=== PATIENT | female | born 1965 | race Caucasian/White ===

== ENCOUNTER 2017-06-22 12:47 | Emergency (ER) | payer OTHER ==
[~2017-06-22] VITALS: Ht 157.5 cm; Wt 92.9 kg
[~2017-06-22 12:47] MED LIST: ACET-1311 PO; NAPR1TAB9 PO; OXYC-57 PO
[2017-06-22 12:57] VITALS: TEMP 36.8; Ht 157.5 cm; Wt 92.9 kg
[2017-06-22] MEDS ORDERED: DiphenhydrAMINE HCL 50 MG/ML VIAL IV STA (13:07)
[2017-06-22] MEDS ORDERED: METHYLPREDNISOLONE 125 MG VIAL IV STA (13:07)
[2017-06-22] MEDS ORDERED: FAMOTIDINE 20MG/5ML IV PUSH IV STA (13:07)
[2017-06-22] MEDS ORDERED: CEFTRIAXONE SOD INJ 1 GM ADDVIAL IV STA (13:07)
--- NOTE | 2017-06-22 13:11 | EMERGENCY ROOM VISIT NOTE ---
History Report prepared by Hans: Nemesio Torres Under the Supervision of: Dr. Layton Chowdhury M.D. First contact with patient: 13:03 Chief Complaint: ALLERGIC REACTION Stated Complaint: ALLERGIC REACTION TO MEDICATION Nursing Triage Summary: pt reports she just started Bactrim and Phenazopyridine, took first and only dose at 1100. Pt reports 30 min after started sneezing, itchiness to ears and throat, chest irritated and red, bilateral palms red and itching. Pt on for UTI History of Present Illness The patient is a 51 year old female who presents to the Emergency Room with complaints of constant itchiness in her throat and over her palms that began about 1 hour prior to arrival after taking her first dosage of Bactrim and Pyridium. The patient was recently prescribed Bactrim and Pyridium for a urinary tract infection. She has taken Bactrim before, but this was her first time taking Pyridium. 1 hour after taking the medication her throat and hands began to itch. She also has itching diffusely over her torso, but notes that her hands and throat are worse. She has not taken any Benadryl. Source of History: patient Onset: 1 hour [employer] Position: throat, hand (bilateral) Quality: other (itching) Timing: constant Review of Systems See HPI for pertinent positives & negatives. A total of 10 systems reviewed and were otherwise negative. Past Medical & Surgical UTI (urinary tract infection) Family History Cancer Diabetes mellitus Gallbladder disease Heart disease Hypertension Kidney disease Kidney stones Lung disease Seizures Social History Smoking Status: Never Smoker Drug Use: none Marital Status: Housing Status: lives with family Occupation Status: employed Current/Historical Medications Scheduled Naproxen (Aleve), 220 MG PO UD Nitrofurantoin Monohyd Macrocr (Macrobid), 100 MG PO BID Prednisone (Prednisone Tab), 0 PO DAILY Ranitidine Hcl (Zantac), 150 MG PO BID Miscellaneous Medications Acetaminophen (Tylenol), 650 MG PO Allergies Coded Allergies: Phenazopyridine (Unverified Allergy, Severe, ITCHING/COUGHING/RASH, ) Sulfamethoxazole w/Trimethoprim (Unverified Allergy, Severe, RASH/ITCHING/ COUGHING, 06/22/17) Penicillins (Unverified Allergy, Intermediate, STOMACH SENSIVITY, 06/22/17) Adhesives (Verified Allergy, Unknown, 06/22/17) Physical Exam Vital Signs Date Time Temp Pulse Resp B/P (MAP) Pulse Ox O2 Delivery O2 Flow Rate FiO2 06/22/17 14:52 82 18 159/97 98 06/22/17 14:01 77 06/22/17 13:01 100 Room Air 06/22/17 12:57 36.8 96 16 173/109 100 Room Air Physical Exam GENERAL: Patient is a healthy-appearing well-nourished female. HEAD: Normocephalic atraumatic EYES: Ocular movements intact pupils equal and react to light OROPHARYNX mucous membranes are moist no exudates present no erythema or edema present NECK: Supple no nuchal rigidity CHEST: Good equal expansion. There is no wheezing or stridor on exam. LUNGS: Clear and equal to auscultation CARDIAC: Normal S1 and S2 ABDOMEN: Soft nontender no guarding BACK: No CVA tenderness EXTREMITIES: No pain upon palpation normal muscle strength in all groups no clubbing cyanosis or edema NEURO: Patient is following commands and answering questions appropriately. Alert and oriented x3 Cranial Nerves 2-12 grossly intact SKIN: Urticarial rash to the palms, torso and back. Medical Decision & Procedures Medications Administered Medications (Trade) Dose Ordered Sig/Nazanin Route Start Time Stop Time Status Last Admin Dose Admin Methylprednisolone Sodium Succinate (Solu-Medrol IV) 125 mg NOW STAT IV 06/22/17 13:07 06/22/17 13:09 DC 06/22/17 13:47 125 MG Diphenhydramine HCl (Benadryl Inj) 50 mg NOW STAT IV 06/22/17 13:07 06/22/17 13:09 DC 06/22/17 13:46 50 MG Famotidine (Pepcid 20mg Iv Push) 20 mg ONE STAT IV 06/22/17 13:07 06/22/17 13:09 DC 06/22/17 13:46 20 MG Ceftriaxone Sodium (Rocephin Inj) 1 gm NOW STAT IV 06/22/17 13:07 06/22/17 13:09 DC 06/22/17 13:47 1 GM ED Course 1304: Past medical records reviewed. The patient was evaluated in room A3. A complete history and physical examination was performed. 1307: Ordered Rocephin 1 gm IV, Famotidine 20 mg IV, Benadryl 50 mg IV, Solu- Medrol 125 mg IV. 1412: Upon reexamination the patient is resting in bed. I discussed results and treatment plan with the patient. She verbalizes agreement and understanding. The patient is ready for discharge. Medical Decision Differential diagnosis: Etiologies such as allergic reaction, anaphylaxis, urticaria, Hernández-Darnell syndrome, toxic epidermal necrolysis, erythema multiforme, cellulitis, as well as others were entertained. This is a 51-year-old female who presents emergency department complaining of rash to her hands and body approximately one half hour after taking her Bactrim and Pyridium. An IV was established, the patient was given Solu-Medrol, Benadryl, Zantac. She was also started on IV Rocephin and given Macrobid for her UTI. Repeat examination revealed improvement patient's symptoms. I do feel the patient can be safely discharged home. She'll be placed on Macrobid as well as a prednisone taper and Zantac. Patient was in agreement with the treatment plan. Impression Primary Impression: Allergic reaction Scribe Attestation The scribe's documentation has been prepared under my direction and personally reviewed by me in its entirety. I confirm that the note above accurately reflects all work, treatment, procedures, and medical decision making performed by me. Departure Information Dispostion Home / Self-Care Prescriptions Ranitidine Hcl (ZANTAC) 150 Mg Tab 150 MG PO BID for 7 Days, #14 TAB Prov: Layton Chowdhury MD 06/22/17 Prednisone (Prednisone Tab) 20 Mg Tab 0 PO DAILY, #7 TAB 2 TABS DAILY FOR 2 DAYS, THEN 1 TAB DAILY FOR 2 DAYS, THEN 1/2 TAB DAILY FOR 2 DAYS. Prov: Layton Chowdhury MD 06/22/17 Nitrofurantoin Monohyd Macrocr (Macrobid) 100 Mg Cap 100 MG PO BID for 7 Days, #14 CAP Prov: Layton Chowdhury MD 06/22/17 Referrals No Doctor, Assigned (PCP) Forms HOME CARE DOCUMENTATION FORM, IMPORTANT VISIT INFORMATION Patient Instructions My [facility] [address] Additional Instructions STOP pyridum and Bactrim You have been examined and treated today on an emergency basis only. This is not a substitute for, or an effort to provide, complete comprehensive medical care. It is impossible to recognize and treat all injuries or illnesses in a single emergency department visit. It is therefore important that you follow up closely with your PCP. Call as soon as possible for an appointment. Thank you for your time and consideration. I look forward to speaking with you again soon. Please don't hesitate to call us if you have any questions. Problem Qualifiers Primary Impression: Allergic reaction Encounter type: initial encounter Qualified Codes: T78.40XA - Allergy, unspecified, initial encounter
[2017-06-22] MEDS ORDERED: NITR-5 PO (14:10)
[2017-06-22] MEDS ORDERED: PRED20TA2 PO (14:11)
[2017-06-22] MEDS ORDERED: RANI150T3 PO (14:11)
[2017-06-22 14:52] VITALS: BP 159/97; PULSE 82; O2SAT 98
== END 2017-06-22 14:54 | disposition home or self-care (01) ==
LOC: C.EDB 12:50 → C.EDA 14:54
DX: T78.40XA Allergy, unspecified, initial encounter (principal); X58.XXXA Exposure to other specified factors, initial encounter; Z87.440 Personal history of urinary (tract) infections; Z80.9 Family history of malignant neoplasm, unspecified; Z83.3 Family history of diabetes mellitus; Z83.79 Family history of other diseases of the digestive system; Z82.49 Family history of ischemic heart disease and other diseases of the circulatory system; Z84.1 Family history of disorders of kidney and ureter; Z83.6 Family history of other diseases of the respiratory system